=== PATIENT | female | born 1985 | race Two or more races ===

== ENCOUNTER 2016-12-04 13:48 | Emergency (ER) | payer MEDICAID, OTHER ==
--- NOTE | 2016-12-04 14:10 | EDDOCDS ---
Physician Documentation [facility] Name: Nena Whaley Age: 31 yrs Sex: Female : 1985 Arrival Date: 12/04/2016 Time: 13:48 Bed Triage 1 Private MD: NO PRIMARY PHYSICIAN, . Disposition: 12/04/16 14:06 Discharged to Home/Self Care. Impression: Dental caries. - Condition is Stable. - Discharge Instructions: Dental Pain. - Prescriptions for Amoxicillin 500 mg Oral Capsule - take 1 capsule by ORAL route every 8 hours for 10 days; 30 tablet. Ultram 50 mg Oral Tablet - take 1 tablet by ORAL route every 12 hours As needed MDD: 2 tabs; 10 tablet. - Medication Reconciliation, Local Pharmacy Hours form. - Follow up: Your, Dentist; When: 2 - 3 days; Reason: Further diagnostic work-up, Recheck today's complaints, Continuance of care. - Problem is an acute exacerbation. - Symptoms are unchanged. Historical: - Allergies: no known allergies; - Home Meds: 1. ibuprofen 200 mg Oral cap 2 caps every 6 hours as needed (Last dose: 12/04/2016 08:00) - PMHx: none; - PSHx: Appendectomy; Left Wrist Surgery; ; - Social history: Smoking status: Patient uses tobacco products, light tobacco smoker. No barriers to communication noted, The patient speaks fluent Divehi. - Family history: Not pertinent. - : The pt / caregiver states he / she is not on anticoagulants. Home medication list is obtained from the patient. - Exposure Risk Screening:: None identified. 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 5 in. (165.10 cm) (R); Pain 8/10; 13:50 Body Mass Index 29.12 (79.38 kg, 165.10 cm) gr2 Signatures: Geo Yanez PA PA btw Castle, Jennifer, RN RN jc4 Sofía Smalls RN RN js13 MTDD
--- NOTE | 2016-12-04 14:10 | EDDOCDS ---
Nurse's Notes [facility] Name: Nena Whaley Age: 31 yrs Sex: Female : 1985 Arrival Date: 12/04/2016 Time: 13:48 Bed Triage 1 Private MD: NO PRIMARY PHYSICIAN, . Diagnosis: Dental caries Presentation: 12/04 13:52 Presenting complaint: Patient states: "my teeth are hurting really bad. I lost a jc4 filling in my tooth." Points to right lower jaw. States, "my other teeth are hurting and I've been told that I need a root canal". Adult Sepsis Screening: The patient does not have new or worsening altered mentation. Patient's respiratory rate is less than 22. Systolic blood pressure is greater than 100. Patient has a qSOFA score of 0- Negative Sepsis Screen. Suicide/Homicide risk assessment- the patient denies having any suicidal and/or homicidal ideations and does not present with any other emotional, behavioral or mental health complaints. 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 Transition of care: patient was not received from another setting of care. 13:52 Acuity: EYNI Level 5 jc4 13:52 Method Of Arrival: Walkin/Carried/Asstd jc4 Triage Assessment: 13:55 General: Appears in no apparent distress. Pain: Pain currently is 7 out of 10 on a pain jc4 scale. Pt Declines HIV testing. EENT: Reports pain in mouth. 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 ibuprofen 200 mg Oral cap 2 caps every 6 hours as needed (Last dose: 12/04/2016 08:00) - PMHx: none; - PSHx: Appendectomy; Left Wrist Surgery; ; - Social history: Smoking status: Patient uses tobacco products, light tobacco smoker. No barriers to communication noted, The patient speaks fluent Luxembourgish. - Family history: Not pertinent. - : The pt / caregiver states he / she is not on anticoagulants. Home medication list is obtained from the patient. - Exposure Risk Screening:: None identified. Screenin:56 Screening information is obtained from the patient. Fall risk: No risks identified. js13 Assistance ADL's: requires no assistance with activities of daily living. Abuse/DV Screen: The patient / caregiver reports he/she is: not in a situation that causes fear, pain or injury. Nutritional screening: No deficits noted. Advance Directives: There is no active DNR order. home support is adequate. Vital Signs: 13:50 BP 115 / 70; Pulse 57; Resp 18 S; Temp 96.2(O); Pulse Ox 100% on R/A; Weight 79.38 kg gr2 (R); Height 5 ft. 5 in. (165.10 cm) (R); Pain 8/10; 13:50 Body Mass Index 29.12 (79.38 kg, 165.10 cm) gr2 Vitals: 13:50 Log In Time: December 04, 2016 at 13:50. gr2 ED Course: 13:49 Patient visited by Serena Guardado. gr2 13:49 Patient moved to Waiting gr2 13:50 NO PRIMARY PHYSICIAN, . is Private Physician. gr2 13:51 Patient visited by Serena Guardado. gr2 13:51 Patient moved to Pre RCE gr2 13:54 Triage Initiated jc4 13:56 Geo Yanez PA is PHCP. btw 13:56 Herbert Marcus MD is Attending Physician. btw 13:56 Patient visited by Geo Yanez PA. btw 13:56 Patient moved to Triage 2 jc4 13:56 Patient moved to Triage 1 js13 13:56 The patient / caregiver is instructed regarding the plan of care and ED course. js13 13:56 No IV's were initiated during this patient's visit. No procedures done that require js13 assistance. 14:06 Your, Dentist is Referral Physician. btw Order Results: There are currently no results for this order. Outcome: 14:06 Discharge ordered by Provider. btw 14:07 Discharge Assessment: Patient awake, alert and oriented x 3. No cognitive and/or js13 functional deficits noted. Patient verbalized understanding of disposition instructions. patient administered narcotics - no. The following High Risk Discharge criteria are identified: None. Discharged to home ambulatory. Condition: stable. Discharge instructions given to patient, Instructed on discharge instructions, follow up and referral plans. medication usage, Demonstrated understanding of instructions, medications, Pt was receptive of discharge instructions/ teaching. No special radiology studies were completed. Property :Personal belongings accompany Pt. 14:09 Prescriptions given X 2. js13 14:10 Patient left the ED. js13 Signatures: Geo Yanez PA PA btw Sofía Ward, RN RN jc4 Sofía Smalls,RN RN js13 Serena Guardado gr2 MTDD
--- NOTE | 2016-12-07 11:09 | EDDOCDS ---
Physician Documentation [facility] Name: Nena Whaley Age: 31 yrs Sex: Female : 1985 Arrival Date: 12/04/2016 Time: 13:48 Bed Triage 1 Private MD: NO PRIMARY PHYSICIAN, . Disposition: 12/04/16 14:06 Discharged to Home/Self Care. Impression: Dental caries. - Condition is Stable. - Discharge Instructions: Dental Pain. - Prescriptions for Amoxicillin 500 mg Oral Capsule - take 1 capsule by ORAL route every 8 hours for 10 days; 30 tablet. Ultram 50 mg Oral Tablet - take 1 tablet by ORAL route every 12 hours As needed MDD: 2 tabs; 10 tablet. - Medication Reconciliation, Local Pharmacy Hours form. - Follow up: Your, Dentist; When: 2 - 3 days; Reason: Further diagnostic work-up, Recheck today's complaints, Continuance of care. - Problem is an acute exacerbation. - Symptoms are unchanged. Historical: - Allergies: no known allergies; - Home Meds: 1. ibuprofen 200 mg Oral cap 2 caps every 6 hours as needed (Last dose: 12/04/2016 08:00) - PMHx: none; - PSHx: Appendectomy; Left Wrist Surgery; ; - Social history: Smoking status: Patient uses tobacco products, light tobacco smoker. No barriers to communication noted, The patient speaks fluent Yakut. - Family history: Not pertinent. - : The pt / caregiver states he / she is not on anticoagulants. Home medication list is obtained from the patient. - Exposure Risk Screening:: None identified. 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 5 in. (165.10 cm) (R); Pain 8/10; 13:50 Body Mass Index 29.12 (79.38 kg, 165.10 cm) gr2 MDM: 14:21 [facility] Payment Agreement was scanned into [employer] and attached to record. lg 20:44 T-Sheet-- Draft Copy was scanned into [employer] and attached to record. klr Signatures: Ganter, LoriLee, Reg Reg lg Geo Yanez PA PA btw Castle, Jennifer, RN RN jc4 Sofía Smalls,LIZANDRO RN js13 Hannah Tian The chart was reviewed and I authenticate all verbal orders and agree with the evaluation and treatment provided.Attachments: 14:21 [facility] Payment Agreement lg 20:44 T-Sheet-- Draft Copy klr Chart Complete MTDD
--- NOTE | 2016-12-07 11:09 | EDDOCDS ---
Nurse's Notes [facility] Name: Nena Whaley Age: 31 yrs Sex: Female : 1985 Arrival Date: 12/04/2016 Time: 13:48 Bed Triage 1 Private MD: NO PRIMARY PHYSICIAN, . Diagnosis: Dental caries Presentation: 12/04 13:52 Presenting complaint: Patient states: "my teeth are hurting really bad. I lost a jc4 filling in my tooth." Points to right lower jaw. States, "my other teeth are hurting and I've been told that I need a root canal". Adult Sepsis Screening: The patient does not have new or worsening altered mentation. Patient's respiratory rate is less than 22. Systolic blood pressure is greater than 100. Patient has a qSOFA score of 0- Negative Sepsis Screen. Suicide/Homicide risk assessment- the patient denies having any suicidal and/or homicidal ideations and does not present with any other emotional, behavioral or mental health complaints. 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 Transition of care: patient was not received from another setting of care. 13:52 Acuity: YENI Level 5 jc4 13:52 Method Of Arrival: Walkin/Carried/Asstd jc4 Triage Assessment: 13:55 General: Appears in no apparent distress. Pain: Pain currently is 7 out of 10 on a pain jc4 scale. Pt Declines HIV testing. EENT: Reports pain in mouth. 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 ibuprofen 200 mg Oral cap 2 caps every 6 hours as needed (Last dose: 12/04/2016 08:00) - PMHx: none; - PSHx: Appendectomy; Left Wrist Surgery; ; - Social history: Smoking status: Patient uses tobacco products, light tobacco smoker. No barriers to communication noted, The patient speaks fluent Turkish. - Family history: Not pertinent. - : The pt / caregiver states he / she is not on anticoagulants. Home medication list is obtained from the patient. - Exposure Risk Screening:: None identified. Screenin:56 Screening information is obtained from the patient. Fall risk: No risks identified. js13 Assistance ADL's: requires no assistance with activities of daily living. Abuse/DV Screen: The patient / caregiver reports he/she is: not in a situation that causes fear, pain or injury. Nutritional screening: No deficits noted. Advance Directives: There is no active DNR order. home support is adequate. Vital Signs: 13:50 BP 115 / 70; Pulse 57; Resp 18 S; Temp 96.2(O); Pulse Ox 100% on R/A; Weight 79.38 kg gr2 (R); Height 5 ft. 5 in. (165.10 cm) (R); Pain 8/10; 13:50 Body Mass Index 29.12 (79.38 kg, 165.10 cm) gr2 Vitals: 13:50 Log In Time: December 04, 2016 at 13:50. gr2 ED Course: 13:49 Patient visited by Serena Guardado. gr2 13:49 Patient moved to Waiting gr2 13:50 NO PRIMARY PHYSICIAN, . is Private Physician. gr2 13:51 Patient visited by Serena Guardado. gr2 13:51 Patient moved to Pre RCE gr2 13:54 Triage Initiated jc4 13:56 Geo Yanez PA is PHCP. btw 13:56 Herbert Marcus MD is Attending Physician. btw 13:56 Patient visited by Geo Yanez PA. btw 13:56 Patient moved to Triage 2 jc4 13:56 Patient moved to Triage 1 js13 13:56 The patient / caregiver is instructed regarding the plan of care and ED course. js13 13:56 No IV's were initiated during this patient's visit. No procedures done that require js13 assistance. 14:06 Your, Dentist is Referral Physician. btw 14:19 Patient name changed from Nena\\S\\\\S\\Jovana\\S\\ to Nena\\S\\ \\S\\Jovana. EDMS 14:21 [facility] Payment Agreement was scanned into [employer] and attached to record. lg 20:44 T-Sheet-- Draft Copy was scanned into [employer] and attached to record. klr Order Results: There are currently no results for this order. Outcome: 14:06 Discharge ordered by Provider. btw 14:07 Discharge Assessment: Patient awake, alert and oriented x 3. No cognitive and/or js13 functional deficits noted. Patient verbalized understanding of disposition instructions. patient administered narcotics - no. The following High Risk Discharge criteria are identified: None. Discharged to home ambulatory. Condition: stable. Discharge instructions given to patient, Instructed on discharge instructions, follow up and referral plans. medication usage, Demonstrated understanding of instructions, medications, Pt was receptive of discharge instructions/ teaching. No special radiology studies were completed. Property :Personal belongings accompany Pt. 14:09 Prescriptions given X 2. js13 14:10 Patient left the ED. js13 Signatures: Dispatcher [employer] EDMS Crispin Virk, Reg Reg lg Geo Yanez PA PA btw Castle, Jennifer, RN RN jc4 Sofía Smalls,RN RN js13 Serena Guardado2 Hannah Tian Chart Complete DENYS
--- NOTE | 2016-12-07 11:09 | EDDOCDS ---
Physician Documentation [facility] Name: Nena Whaley Age: 31 yrs Sex: Female : 1985 Arrival Date: 12/04/2016 Time: 13:48 Bed Triage 1 Private MD: NO PRIMARY PHYSICIAN, . Disposition: 12/04/16 14:06 Discharged to Home/Self Care. Impression: Dental caries. - Condition is Stable. - Discharge Instructions: Dental Pain. - Prescriptions for Amoxicillin 500 mg Oral Capsule - take 1 capsule by ORAL route every 8 hours for 10 days; 30 tablet. Ultram 50 mg Oral Tablet - take 1 tablet by ORAL route every 12 hours As needed MDD: 2 tabs; 10 tablet. - Medication Reconciliation, Local Pharmacy Hours form. - Follow up: Your, Dentist; When: 2 - 3 days; Reason: Further diagnostic work-up, Recheck today's complaints, Continuance of care. - Problem is an acute exacerbation. - Symptoms are unchanged. Historical: - Allergies: no known allergies; - Home Meds: 1. ibuprofen 200 mg Oral cap 2 caps every 6 hours as needed (Last dose: 12/04/2016 08:00) - PMHx: none; - PSHx: Appendectomy; Left Wrist Surgery; ; - Social history: Smoking status: Patient uses tobacco products, light tobacco smoker. No barriers to communication noted, The patient speaks fluent Albanian. - Family history: Not pertinent. - : The pt / caregiver states he / she is not on anticoagulants. Home medication list is obtained from the patient. - Exposure Risk Screening:: None identified. 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 5 in. (165.10 cm) (R); Pain 8/10; 13:50 Body Mass Index 29.12 (79.38 kg, 165.10 cm) gr2 MDM: 14:21 [facility] [place] Payment Agreement was scanned into [employer] and attached to record. lg 20:44 T-Sheet-- Draft Copy was scanned into [employer] and attached to record. klr Signatures: Ganter, LoriLee, Reg Reg lg Geo Yanez PA PA btw Castle, Jennifer, RN RN jc4 Sofía Smalls,LIZANDRO RN js13 Hannah Tian The chart was reviewed and I authenticate all verbal orders and agree with the evaluation and treatment provided.Attachments: 14:21 [facility] [place] Payment Agreement lg 20:44 T-Sheet-- Draft Copy klr Chart Complete MTDD
== END 2016-12-04 14:10 | disposition home or self-care (01) ==
LOC: M ED 13:48
DX: K02.9 Dental caries, unspecified (principal)

== ENCOUNTER → 2016-12-18 | Outpatient (REF) | payer OTHER | LOC: M LAB REF 14:35 | PROVIDERS: ATTEND Physician Assistant | DX: R50.9 Fever, unspecified (principal) ==

== ENCOUNTER 2020-04-29 21:32 | Emergency (ER) | payer OTHER ==
[~2020-04-29] VITALS: Ht 165.1 cm; Wt 83.2 kg
[2020-04-29] MEDS ORDERED: SUMA25TA3 PO (21:55)
[2020-04-29] MEDS ORDERED: NS 1,000 ML IV SCH (22:21)
[2020-04-29] MEDS ORDERED: PANTOPRAZOLE 40MG VIAL (C9113 PER 1) IV ONE (22:30)
[2020-04-29] MEDS ORDERED: ONDANSETRON 4MG/2ML VIAL IV ONE (22:30)
[2020-04-29 22:45] LABS: BASO # 0.1 10^3/uL (0.0-0.2); BASO % 0.7 % (0.0-1.0); EOS # 0.1 10^3/uL (0.0-0.5); EOS % 0.8 % (0.0-3.0); HEMATOCRIT 37.1 % (36.0-47.0); LYMPH # 2.1 10^3/uL (1.5-5.0); MEAN CORPUSCULAR HEMOGLOBIN 31.9 pg (27.0-33.0); MEAN CORPUSCULAR VOLUME 90.9 fl (80.0-96.0); MONO # 0.7 10^3/uL (0.0-0.8); MONO % 5.9 % (0.0-5.0); NEUTROPHILS % 73.3 % (36.0-66.0); PLATELET COUNT, AUTOMATED 257 10^3/uL (150-450); RED BLOOD COUNT 4.08 10^6/uL (4.00-5.40)
[2020-04-29 23:05] LABS: INR 1.03; PROTHROMBIN TIME 13.2 SECONDS (11.8-14.0)
[2020-04-29 23:06] LABS: PARTIAL THROMBOPLASTIN TIME 31.2 SECONDS (25.0-38.4)
[2020-04-29 23:17] LABS: ALT/SGPT 25 U/L (12-78); BILIRUBIN,DIRECT < 0.1 MG/DL (0.0-0.2); BILIRUBIN,TOTAL 0.3 MG/DL (0.2-1.0); BLOOD UREA NITROGEN 7 MG/DL (7-18); CALCIUM LEVEL 8.8 MG/DL (8.5-10.1); CARBON DIOXIDE LEVEL 28 MEQ/L (21-32); CHLORIDE LEVEL 106 MEQ/L (98-107); CK-MB VALUE MASS 1.5 NG/ML (<3.6); CPK CREATINE PHOSPHOKINASE 134 U/L (26-192); CREATININE FOR GFR 0.66 MG/DL (0.55-1.30); FREE T4 1.15 NG/DL (0.76-1.46); GLOMERULAR FILTRATION RATE > 60.0 (>60); GLUCOSE, FASTING 106 MG/DL (70-100); LIPASE 57 U/L (73-393); MB/CK RELATIVE INDEX 1.12 (< OR =4); POTASSIUM SERUM 3.7 MEQ/L (3.5-5.1); SODIUM LEVEL 141 MEQ/L (136-145); THYROID STIMULATING HORMONE 0.566 uIU/ML (0.358-3.740); TOTAL PROTEIN 6.9 GM/DL (6.4-8.2); TROPONIN I < 0.02 NG/ML (< 0.10)
[2020-04-29 23:20] LABS: HCG, SERUM QUALITATIVE NEGATIVE (NEGATIVE)
[2020-04-29] MEDS ORDERED: ISOVUE-370 76% 100ML VIAL As Ordered ONE (23:37)
--- NOTE | 2020-04-30 00:11 | REPVR ---
PROCEDURE INFORMATION: Exam: CT Angiography Chest With Contrast Exam date and time: 04/29/2020 11:28 PM Age: 34 years old Clinical indication: Chest pain; Type not specified; Additional info: Chest pain, SOB TECHNIQUE: Imaging protocol: Computed tomographic angiography of the chest with intravenous contrast. 3D rendering: MIP and/or 3D reconstructed images were created by the technologist. Radiation optimization: All CT scans at this facility use at least one of these dose optimization techniques: automated exposure control; mA and/or kV adjustment per patient size (includes targeted exams where dose is matched to clinical indication); or iterative reconstruction. Contrast material: ISO; Contrast volume: 100 ml; Contrast route: AC; COMPARISON: CR CHEST 2 VIEW 10/21/2013 1:40 PM FINDINGS: Pulmonary arteries: Normal. No pulmonary emboli. Aorta: Unremarkable. No aortic aneurysm. No aortic dissection. Tracheobronchial tree: Visualized airway is unremarkable. Lungs: Subsegmental atelectasis in the right lower lobe. Subpleural nodule in the right middle lobe measuring 4 mm. Series 401, image 86. Pleural space: Unremarkable. No pneumothorax. No pleural effusion. Heart: Unremarkable. No cardiomegaly. No pericardial effusion. Lymph nodes: Unremarkable. No enlarged lymph nodes. Bones/joints: Unremarkable. No acute fracture. Soft tissues: Unremarkable. IMPRESSION: 1. Negative for pulmonary embolism. 2. Subpleural nodule in the right middle lobe. No follow-up is necessary for typical perifissural nodule. (Reference: Lenny Langston) REFERENCES: Lenny Langston, et al. ?Guidelines for Management of Incidental Pulmonary Nodules Detected on CT Images: From the Fleischner Society 2017.? Radiology, 2017. Electronically signed by: Felicitas Zavala On 04/30/2020 00:10:34 AM
--- NOTE | 2020-04-30 00:15 | REPVR ---
PROCEDURE INFORMATION: Exam: CT Abdomen And Pelvis With Contrast Exam date and time: 04/29/2020 11:28 PM Age: 34 years old Clinical indication: Abdominal pain; Generalized; Additional info: Upper abd pain, vomiting TECHNIQUE: Imaging protocol: Computed tomography of the abdomen and pelvis with intravenous contrast. Radiation optimization: All CT scans at this facility use at least one of these dose optimization techniques: automated exposure control; mA and/or kV adjustment per patient size (includes targeted exams where dose is matched to clinical indication); or iterative reconstruction. Contrast material: ISO; Contrast volume: 100 ml; Contrast route: AC; COMPARISON: No relevant prior studies available. FINDINGS: Lungs: Subsegmental atelectasis in the right lower lobe. Liver: Normal. No mass. Gallbladder and bile ducts: Normal. No calcified stones. No ductal dilation. Pancreas: Normal. No ductal dilation. Spleen: Normal. No splenomegaly. Adrenals: Normal. No mass. Kidneys and ureters: Normal. No hydronephrosis. Stomach and bowel: Copious stool in the colon. No abnormal bowel dilatation. No abnormal bowel wall thickening. Negative for colonic diverticulitis. Appendix: Status post appendectomy. Intraperitoneal space: Unremarkable. No free air. No significant fluid collection. Vasculature: Unremarkable. No abdominal aortic aneurysm. Lymph nodes: Multiple small mesenteric nodes. Bladder: Unremarkable as visualized. Reproductive: IUD in the uterus. Bones/joints: Scattered benign bone islands. No acute fracture. Soft tissues: Unremarkable. IMPRESSION: 1. No evidence of bowel obstruction 2. Copious stool in the colon. 3. Nonacute findings as described. Electronically signed by: Felicitas Zavala On 04/30/2020 00:15:10 AM
[2020-04-30 04:18] LABS: CK-MB VALUE MASS 1.1 NG/ML (<3.6); CPK CREATINE PHOSPHOKINASE 117 U/L (26-192); MB/CK RELATIVE INDEX 0.94 (< OR =4); TROPONIN I < 0.02 NG/ML (< 0.10)
[2020-04-30] MEDS ORDERED: ZOFR4TAB16 PO (05:23)
[2020-04-30 05:30] VITALS: BP 102/51
--- NOTE | 2020-04-30 08:41 | ECGEPIP ---
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
--- NOTE | 2020-04-30 08:48 | ECGEPIP ---
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
== END 2020-04-30 05:55 | disposition home or self-care (01) ==
LOC: M ED 21:32
DX: R10.13 Epigastric pain (principal); F17.210 Nicotine dependence, cigarettes, uncomplicated
CPT/HCPCS: 71275; 74177; 80048; 80076; 82550; 82553; 83690; 84439; 84443; 84703; 85025; 85610; 85730; 93005; 93041; 94760; 96361; 96374; 96375; 99285; C9113; J2405; Q9967

== ENCOUNTER 2020-06-25 13:12 | Emergency (ER) | payer OTHER ==
[~2020-06-25 13:12] MED LIST: SUMA25TA3 PO; ZOFR4TAB16 PO
[2020-06-25] MEDS ORDERED: ONDANSETRON 4MG/2ML VIAL ONE (17:20)
[2020-06-25] MEDS ORDERED: ONDANSETRON 4MG/2ML VIAL As Ordered ONE (17:20)
[2020-08-03 10:16] LABS: BASO # 0.1 10^3/uL (0.0-0.2); BASO % 0.6 % (0.0-1.0); EOS % 0.1 % (0.0-3.0); HEMATOCRIT 41.5 % (36.0-47.0); HEMOGLOBIN 14.3 g/dl (12.0-15.5); LYMPH # 1.5 10^3/uL (1.5-5.0); LYMPH % 12.8 % (24.0-44.0); MEAN CORPUSCULAR HEMOGLOBIN 32.1 pg (27.0-33.0); MEAN CORPUSCULAR HGB CONC 34.5 g/dl (32.0-36.5); MONO # 0.4 10^3/uL (0.0-0.8); MONO % 3.3 % (0.0-5.0); NEUTROPHILS # 9.4 10^3/uL (1.5-8.5); NEUTROPHILS % 82.8 % (36.0-66.0); PLATELET COUNT, AUTOMATED 284 10^3/uL (150-450); RED BLOOD COUNT 4.46 10^6/uL (4.00-5.40); WHITE BLOOD COUNT 11.4 10^3/uL (4.0-10.0)
[2020-08-04 21:11] LABS: ALBUMIN 4.1 GM/DL (3.2-5.2); ALT/SGPT 22 U/L (12-78); BILIRUBIN,DIRECT < 0.1 MG/DL (0.0-0.2); BILIRUBIN,TOTAL 0.4 MG/DL (0.2-1.0); BLOOD UREA NITROGEN 6 MG/DL (7-18); CALCIUM LEVEL 9.3 MG/DL (8.5-10.1); CARBON DIOXIDE LEVEL 25 MEQ/L (21-32); CHLORIDE LEVEL 109 MEQ/L (98-107); CREATININE FOR GFR 0.66 MG/DL (0.55-1.30); GLOMERULAR FILTRATION RATE > 60.0 (>60); GLUCOSE, FASTING 84 MG/DL (70-100); POTASSIUM SERUM 4.3 MEQ/L (3.5-5.1); SODIUM LEVEL 140 MEQ/L (136-145); TOTAL PROTEIN 7.4 GM/DL (6.4-8.2)
[2020-08-04 21:25] LABS: HCG, SERUM QUALITATIVE NEGATIVE (NEGATIVE)
== END 2020-06-25 20:30 | disposition home or self-care (01) ==
LOC: M ED 13:12
DX: R11.0 Nausea (principal); R42 Dizziness and giddiness; R00.1 Bradycardia, unspecified; K21.9 Gastro-esophageal reflux disease without esophagitis; A69.20 Lyme disease, unspecified; Z79.899 Other long term (current) drug therapy
CPT/HCPCS: 80048; 80076; 84703; 85025; 96374; 99284; J2405

== ENCOUNTER → 2024-06-26 | Outpatient (REF) | payer OTHER, MEDICAID | LOC: M LAB REF 12:23 | PROVIDERS: ATTEND Physician Assistant | DX: M79.10 Myalgia, unspecified site (principal) ==

== ENCOUNTER → 2025-01-30 | Outpatient (CLI) | payer OTHER | LOC: M RAD 13:17 | PROVIDERS: ATTEND Physician Assistant | DX: J32.8 Other chronic sinusitis (principal); J34.2 Deviated nasal septum ==